=== PATIENT | male | born 1970 | race Caucasian/White ===

== ENCOUNTER 2020-08-19 08:13 | Day surgery (SDC) | payer BC ==
[~2020-08-19] VITALS: Ht 172.7 cm; Wt 72.2 kg
[2020-08-19 08:32] VITALS: BP 135/93
[2020-08-19] MEDS ORDERED: CHOL100025 PO (08:41)
[2020-08-19] MEDS ORDERED: HYDR-3965 PO (08:41)
[2020-08-19] MEDS ORDERED: IBUP-1986 PO (08:41)
[2020-08-19] MEDS ORDERED: normal saline 1000ml 1,000 ML IV SCH ×2 (09:20→11:05)
[2020-08-19] MEDS ORDERED: heparin sodium, porcine/PF 100unit/ml 5ML syringe ONE (09:22)
[2020-08-19] MEDS ORDERED: midazolam 2 mg/2 ml injection ONE ×2 (09:23→09:59)
[2020-08-19] MEDS ORDERED: fentaNYL/PF 50MCG/1 ML 2ML syringe ONE ×2 (09:23→09:59)
[2020-08-19] MEDS ORDERED: LIDOcaine 1%/PF 5ML 10 MG/ML VIAL ONE (09:23)
[2020-08-19 10:54] VITALS: BP 140/96
[2020-08-19 11:15] VITALS: BP 127/65
[2020-08-19 11:30] VITALS: BP 127/90
[2020-08-19 11:43] VITALS: BP 133/89
== END 2020-08-19 11:55 | disposition home or self-care (01) ==
LOC: SSTAY O 08:13
PROVIDERS: ATTEND Radiology Diagnostic Radiology
DX: C49.8 Malignant neoplasm of overlapping sites of connective and soft tissue (principal); Z20.828 Contact with and (suspected) exposure to other viral communicable diseases; Z72.89 Other problems related to lifestyle; Z80.3 Family history of malignant neoplasm of breast; Z80.1 Family history of malignant neoplasm of trachea, bronchus and lung
CPT/HCPCS: 36415; 36561; 76937; 77001; 87635; 99152; 99153; C1769; C1788; C1894; J1642; J2250; J3010